=== PATIENT | male | born 1950 | race Caucasian/White ===

== ENCOUNTER 2018-07-06 10:27 | Inpatient (IN) ==
--- NOTE | 2018-06-21 11:33 | PAT Medication Instructions ---
Medication Instructions Date of Service June 21, 2018 Home Medications alfuzosin 10 mg PO QPM aspirin [Aspir-81] 81 mg PO Q2D atorvastatin 20 mg PO QPM bismuth subsalicylate 1 dose PO UD PRN finasteride 5 mg PO QPM levothyroxine 25 mcg PO QAM losartan 100 mg PO QAM metformin 1,000 mg PO BID Continue as directed aspirin [Aspir-81] 81 mg PO Q2D DO NOT take the morning of surgery bismuth subsalicylate 1 dose PO UD PRN losartan 100 mg PO QAM metformin 1,000 mg PO BID Take morning of surgery With a small sip of water, OTHERWISE NOTHING TO EAT OR DRINK AFTER MIDNIGHT: levothyroxine 25 mcg PO QAM Take evening before surgery alfuzosin 10 mg PO QPM atorvastatin 20 mg PO QPM bismuth subsalicylate 1 dose PO UD PRN (if needed) finasteride 5 mg PO QPM metformin 1,000 mg PO BID Other Notes If you have any questions please call us at [phone] or [phone] or [phone] or [phone]
--- NOTE | 2018-06-21 11:33 | Anesthesiology Consultation ---
Date of Service June 21, 2018 Assessment & Plan (1) Encounter for pre-operative examination: Plan: - Check BSG AM DOS Chart Review Chart Review: Acceptable Risk for Surgery and Patient seen in Pre Admission Testing Teaching & Discussion Pre-Anesthesia Teaching/Discussion Notes: Instructed NPO after midnight before surgery,except medications with 15 cc of water. Medication instructions provided according to the PAT guidelines. History Surgery Operation Date: 07/06/18 07:45 Proposed Procedures p L4-L5 Decompression and Fusion - Adelfo Miller DO Height/Weight Height: 5 ft 9 in Weight: 84 kg Allergies Allergy/AdvReac Type Severity Reaction Status Date / Time No Known Allergies Allergy Verified 06/15/18 09:38 Medications Home Medications Medication Instructions Recorded Confirmed Last Taken alfuzosin 10 mg PO QPM 06/15/18 06/15/18 06/14/18 aspirin [Aspir-81] 81 mg PO Q2D 06/15/18 06/15/18 Unknown atorvastatin 20 mg PO QPM 06/15/18 06/15/18 06/14/18 bismuth subsalicylate 1 dose PO UD PRN 06/15/18 06/15/18 Unknown [Pepto-Bismol] finasteride 5 mg PO QPM 06/15/18 06/15/18 06/14/18 levothyroxine 25 mcg PO QAM 06/15/18 06/15/18 06/15/18 losartan 100 mg PO QAM 06/15/18 06/15/18 06/15/18 metformin 1,000 mg PO BID 06/15/18 06/15/18 06/15/18 Past Medical History Medical History Acid reflux OCCASIONAL Diabetes NIDDM Enlarged prostate History of hepatitis 50 YEARS AGO; NO FURTHER DETAILS History of hyperlipidemia Hypertension Hypothyroidism Spinal stenosis Past Surgical History Surgical History History of carpal tunnel release of both wrists History of colonoscopy Past Anesthesia History No Hx of Anesthesia Complications and No Family Hx of Anesthesia Complications History of PONV No Motion Sickness Screening History of Motion Sickness: No Social History Smoking Status: Never smoker Do You Dip or Chew Tobacco: No Hx Alcohol Use: No Hx Substance Use: No substance use type: does not use Exercise / Class Metabolic Activity III < 4 Walking/Shop/Light housework Review of Systems Patient reports LBP with LE radiculopathy. Occasional reflux. Patient denies chest pain, shortness of breath, cough, wheezing, palpitations. Physical Exam Vital Signs VITALS BP 147/73 P 79 TEMP 98.0 SP02 94%RA RESP 16 Full neck and c-spine range of motion. Full TMJ range of motion. TMD 3 finger breaths Mallampati Score 3 Dentition: intact, upper front permanent bridge Lungs: clear throughout to auscultation Cardiac: regular rate and rhythm, no murmurs noted Spine: normal Carotid arteries: negative bruit Extremities: no edema Testing Electrocardiogram Date: 06/21/18 Findings: + NSR @ (86) Chest X-Ray Date: 06/21/18 Findings: + NAD Calcification of the thoracic aortic arch. Laboratory Results 06/21/18 11:55 06/21/18 11:55 Blood Type O Negative 06/21/18 11:55 Antibody Screen NEGATIVE 06/21/18 11:55 PT 10.0 Seconds (9.0-12.0) 06/21/18 11:55 INR 1.0 (0.9-1.1) 06/21/18 11:55 APTT 26.8 Seconds (21.0-31.0) 06/21/18 11:55 Urine Color Yellow 06/21/18 Unknown Urine Appearance Clear (Clear) 06/21/18 Unknown Urine pH 5.0 (4.5-7.5) 06/21/18 Unknown Ur Specific [place] 1.016 (1.000-1.030) 06/21/18 Unknown Urine Protein Negative (Negative) 06/21/18 Unknown Urine Glucose (UA) Negative (Negative) 06/21/18 Unknown Urine Ketones Negative (Negative) 06/21/18 Unknown Urine Nitrite Negative (Negative) 06/21/18 Unknown Ur Leukocyte Esterase Negative (Negative) 06/21/18 Unknown
--- NOTE | 2018-06-21 12:33 | XRay Report ---
XR chest Pre-admission PA/Lat HISTORY: 68 years-old Male PAT preoperative exam. No acute chest complaints reported COMPARISON: None available TECHNIQUE: PA and lateral views of the chest FINDINGS: Cardiomediastinal and hilar silhouettes are within normal limits. Calcification of the thoracic aorti c arch. There is no pneumothorax, pleural effusion, focal airspace consolidation or overt pulmonary e [place]ka. The bones of the chest appear grossly intact. IMPRESSION: No acute process. The above report was generated using voice recognition software. It may contain grammatical, syntax o r spelling errors. Electronically signed by: Juan Lorenzo M.D. 06/21/2018 12:32 PM
[2018-06-21 13:02] LABS: Basophils # (auto) 0.04 K/uL (0-0.2); Basophils % (auto) 0.4 %; Eosinophils # (auto) 0.17 K/uL (0-0.5); Eosinophils % (auto) 1.8 %; Hematocrit (blood only) 41.3 % (42-52); Hemoglobin 13.4 g/dL (14.0-18.0); Immature Granulocytes # (auto) 0.01 K/uL (0.00-0.02); Immature Granulocytes % (auto) 0.1 %; Lymphocytes % (auto) 17.6 %; Mean Corpuscular Hgb Conc 32.4 g/dL (32-36); Mean Corpuscular Volume 88.8 fL (80-100); Mean Platelet Volume 9.8 fL (7.4-10.4); Monocytes # (auto) 1.11 K/uL (0.11-0.59); Monocytes % (auto) 11.5 %; Neutrophils # (auto) 6.65 K/uL (1.4-6.5); Neutrophils % (auto) 68.6 %; Platelet Count 201 K/uL (130-400); RDW Coefficient of Variation 13.8 % (11.5-14.5); RDW Standard Deviation 44.6 fL (36.4-46.3); Red Blood Count 4.65 M/uL (4.7-6.1); White Blood Count 9.68 K/uL (4.8-10.8)
[2018-06-21 13:02] LABS: Appearance Urine Clear (Clear); Bilirubin Urine Negative (Negative); Color Urine Yellow; Glucose Urine UA Negative (Negative); Ketones Urine Negative (Negative); Leukocyte Esterase Urine Negative (Negative); Nitrite Urine Negative (Negative); Protein Urine Negative (Negative); Specific Gravity Urine 1.016 (1.000-1.030); Urobilinogen Urine Negative (Negative)
[2018-06-21 13:11] LABS: BUN Creatinine Ratio 19.2 (10-20); Calcium 9.5 mg/dl (8.5-10.1); Creatinine Clr Calc Pharmacy 49.8 ml/min; Est GFR (African American) 59.6; Est GFR (Non-African American) 51.4; Potassium 5.1 mmol/L (3.5-5.1)
[2018-06-21 13:19] LABS: Partial Thromboplastin Time 26.8 Seconds (21.0-31.0)
[~2018-07-06 10:27] MED LIST: ACETAMINOPHEN 500 MG TAB PO SCH; CEFAZOLIN 2000MG 2,000 MG/15 ML SYR IV SCH; CeleBREX 200 MG CAP PO SCH; GABAPENTIN 300 MG PO SCH; LACTATED RINGER'S 1,000 ML IV SCH
[2018-07-06] MEDS ORDERED: MIDAZOLAM HCL 1 MG/ML 2ML VIAL ONE (10:30)
[2018-07-06] MEDS ORDERED: fentaNYL citrate 100 MCG/2 ML VIAL ONE ×4 (10:30→13:24)
[2018-07-06] MEDS ORDERED: HYDROmorphone INJ 2 MG/ML SYR/VIAL ONE ×2 (10:30→11:54)
[2018-07-06] MEDS ORDERED: ePHEDrine sulfate 50 MG/ML AMP IV PRN (10:51)
[2018-07-06] MEDS ORDERED: PHENYLEPHRINE 100MCG/ML 5ML SYR IV PRN (10:51)
[2018-07-06] MEDS ORDERED: fentaNYL citrate 100 MCG/2 ML VIAL IV PRN (10:51)
[2018-07-06] MEDS ORDERED: ONDANSETRON INJ 2 MG/ML 2 ML VIAL IV PRN ×2 (10:51→14:57)
[2018-07-06] MEDS ORDERED: ATROPINE SULFATE 0.1 MG/ML 10ML SYR IV PRN (10:51)
[2018-07-06] MEDS ORDERED: HYDROmorphone INJ 1 MG/ML SYRINGE IV PRN (10:51)
--- NOTE | 2018-07-06 11:40 | History & Physical Bridge Note ---
Date of Service July 06, 2018 History & Physical Bridge Note I have examined the patient, reviewed the History & Physical and in the interval since the performance of the History & Physical I have noted the following changes of clinical significance: no changes noted
--- NOTE | 2018-07-06 11:41 | History & Physical Report ---
Date of Service July 06, 2018 Assessment & Plan (1) Neurogenic claudication due to lumbar spinal stenosis: L4-5 decompression fusion Present on Admission?: Yes History of Present Illness Chief Complaint: Back and leg pain Primary Care Provider: Melony Rahman DO This is a 68-year-old male who presents with back and leg pain. After failing extensive course of nonoperative care is here for surgical intervention. Allergies Allergy/AdvReac Type Severity Reaction Status Date / Time No Known Allergies Allergy Verified 07/06/18 10:52 Home Medications Home Medications Medication Instructions Recorded Confirmed Type alfuzosin 10 mg PO QPM 06/15/18 07/06/18 History aspirin [Aspir-81] 81 mg PO Q2D 06/15/18 07/06/18 History atorvastatin 20 mg PO QPM 06/15/18 07/06/18 History bismuth subsalicylate 1 dose PO UD PRN 06/15/18 07/06/18 History [Pepto-Bismol] finasteride 5 mg PO QPM 06/15/18 07/06/18 History levothyroxine 25 mcg PO QAM 06/15/18 07/06/18 History losartan 100 mg PO QAM 06/15/18 07/06/18 History metformin 1,000 mg PO BID 06/15/18 07/06/18 History cholecalciferol (vitamin D3) 1,000 unit PO DAILY 07/06/18 07/06/18 History [Vitamin D3] Past Med/Surg History Medical History Acid reflux OCCASIONAL Diabetes NIDDM Enlarged prostate History of hepatitis 50 YEARS AGO; NO FURTHER DETAILS History of hyperlipidemia Hypertension Hypothyroidism Spinal stenosis Surgical History History of carpal tunnel release of both wrists History of colonoscopy Social History Current Living Situation: Spouse Other Information That Helps Us Care for You: No Feels Safe at Home: Yes Smoking Status: Never smoker Do You Dip or Chew Tobacco: No Hx Alcohol Use: No Hx Substance Use: No Beliefs That Will Affect Care: None Preferred Language: [place] Communication Ability: Effective [employer] D[employer] Required: No Physical Exam 2 Vital Signs (Past 24 Hours): Last Vital Signs Temp 36.7 C 07/06/18 11:00 Pulse 98 H 07/06/18 11:00 Resp 18 07/06/18 11:00 BP 173/84 H 07/06/18 11:00 Pulse Ox 96 07/06/18 11:00 Results & Data Medications Administered Acetaminophen (Tylenol) 1,000 mg PO PREOP JOSE FRANCISCO Stop: 07/06/18 18:00 Last Admin: 07/06/18 11:03 Dose: 1,000 mg Celecoxib (Celebrex) 200 mg PO PREOP JOSE FRANCISCO Stop: 07/06/18 18:00 Last Admin: 07/06/18 11:02 Dose: 200 mg Gabapentin (Neurontin) 300 mg PO PREOP JOSE FRANCISCO Stop: 07/06/18 18:00 Last Admin: 07/06/18 11:03 Dose: 300 mg Lactated Ringer's (Lr) 1,000 mls @ 15 mls/hr IV .Q24H JOSE FRANCISCO Stop: 07/06/18 18:00 Last Admin: 07/06/18 11:02 Dose: 15 mls/hr
[2018-07-06] MEDS ORDERED: BUPIVACAINE/EPINEPHRINE 0.5% MPF 1:200,000 30 ML VIAL ONE (11:56)
[2018-07-06] MEDS ORDERED: BACITRACIN INJ 50,000 UNIT VIAL ONE (11:56)
[2018-07-06] MEDS ORDERED: ESMOLOL HCL INJ 10 MG/ML 10ML VIAL IV ONE (12:40)
[2018-07-06] MEDS ORDERED: LIDOCAINE HCL 2% 2 ML VIAL/AMP(20MG/ML) INFIL ONE (12:40)
[2018-07-06] MEDS ORDERED: DEXAMETHASONE SOD INJ 4 MG/ML VIAL ONE (12:40)
[2018-07-06] MEDS ORDERED: ePHEDrine sulfate 50 MG/ML SYR ONE (12:40)
[2018-07-06] MEDS ORDERED: ONDANSETRON INJ 2 MG/ML 2 ML VIAL ONE (12:40)
[2018-07-06] MEDS ORDERED: PROPOFOL IV EMULSION 10 MG/ML 20 ML VIAL IV ONE (12:40)
[2018-07-06] MEDS ORDERED: NEOSTIGMINE METHYLSULFATE 1 MG/ML 10ML VIAL ONE (12:40)
[2018-07-06] MEDS ORDERED: PHENYLEPHRINE 100MCG/ML 5ML SYR ONE (12:40)
[2018-07-06] MEDS ORDERED: GLYCOPYRROLATE 0.2 MG/ML VIAL ONE (12:40)
[2018-07-06] MEDS ORDERED: LARYING-O-JET KIT (LTA) ONE (12:46)
[2018-07-06] MEDS ORDERED: FLOSEAL HEMOSTATIC MATRIX 10ML TOP ONE (13:32)
--- NOTE | 2018-07-06 13:40 | Operative Report ---
Post Operative Report Pre & Post Diagnosis Operation Date: 07/06/18 12:25 Pre-Op Diagnosis: Neurogenic claudication due to lumbar spinal stenosis Post-Op Diagnosis: Neurogenic claudication due to lumbar spinal stenosis Procedure Operative report. #1 lumbar decompression medial facetectomy foraminotomy L3-4 L4-5 #2 posterior spinal fusion L4-5 per #3 please posterior instrumentation L4-5 per #4 interbody fusion L4-5 per #[address] place of titanium 12 x 26 mm cage L4-5. #6 placement of local autograft and posterior gutters. #7 placement Feese), mass graft posterior gutters and ostial amp and interbody space. Surgeon Adelfo Miller, Primary Care Provider Eboni Holly Estimated Blood Loss 225 Findings Consistent with Post-Op Diagnosis Specimens None Description of Procedure Met with preoperatively case discussed all questions addressed. The patient was taken back to the operative suite underwent intubation placed in a prone position Juvenal table top Anderson frame. All bony prominences well-padded eyes inspected to ensure no external pressure placed upon. This point lumbar spine was prepped and draped in a sterile fashion. Sharp dissection with the assistance of Bovie cautery was performed down to and exposing the lamina and transverse process of L4-5 bilaterally. Obvious facet hypertrophy was noted. Complete laminectomy of L4 partial laminectomy of L3 was performed including medial facetectomies foraminotomies addressing severe lateral recess and foraminal disease. Massive facet cyst on the left was identified and removed. Pedicle screws and placed in L4-5 bilaterally with assistance of fluoroscopy and process radha placed. The transfemoral approach on the left complete discectomy was performed in plate coated to subcortical bleeding bone and a 12 x 26 mm titanium cage filled ostium bone graft tapped in position. Rods were then compressed locked in final position bilaterally. The transverse processes of L4 and fiber 2 subcortical B bone. Infuse collagen sponge mass graft local autograft placed in the posterior gutters. A 10 round REZA drain inserted. Incision was then closed with 1 Vicryl fascia 2-0 Vicryl subtenons in 4 Monocryl for final skin closure Steri-Strip sterile dressing placed. Patient will continue to PACU stable disc. Please note Eboni Holly present throughout the entire procedure total patient positioning complex portions of the surgeon Fransen closure. I attest to the content of the Intraoperative Record and any orders documented therein. Any exceptions are noted below.
--- NOTE | 2018-07-06 13:45 | Fluoroscopy Report ---
FL lumbar spine 2-3V CLINICAL HISTORY: L4-L5 DECOMPRESSION AND FUSION COMPARISON STUDY: Lumbar spine MRI May 02, 2018. FLUOROSCOPY TIME: 11.6 seconds. FLUOROSCOPIC IMAGES: 2 FINDINGS: These images demonstrate an L4-L5 discectomy with interbody spacer placement. Note is made of a posterior decompression with bilateral pedicle screw fusion at L4 and L5. Hardware is intact. Th ere are no unexpected radiopaque foreign bodies. IMPRESSION: Expected findings following L4-L5 discectomy with posterior decompression and bilateral pedicle screw fusion. Electronically signed by: Foster Hong M.D. 07/06/2018 1:44 PM
[2018-07-06] MEDS ORDERED: BISACODYL 10 MG SUPP PR PRN (14:57)
[2018-07-06] MEDS ORDERED: DO NOT ADMINISTER PNEUMOCOCCAL VACCINE PRN (14:57)
[2018-07-06] MEDS ORDERED: LORazepam 0.5 MG TAB PO PRN (14:57)
[2018-07-06] MEDS ORDERED: ACETAMINOPHEN 500 MG TAB PO PRN (14:57)
[2018-07-06] MEDS ORDERED: PROMETHAZINE HCL 12.5 MG in SODIUM CHLORIDE 0.9% 50 ML IV PRN (14:57)
[2018-07-06] MEDS ORDERED: FAMOTIDINE 20 MG TAB PO PRN (14:57)
[2018-07-06] MEDS ORDERED: ACETAMINOPHEN 1,000 MG/100 ML VIAL IV PRN (14:57)
[2018-07-06] MEDS ORDERED: DO NOT ADMINISTER FLU VACCINE PRN (14:57)
[2018-07-06] MEDS ORDERED: TRAMADOL HCL 50 MG TABLET PO PRN (14:57)
[2018-07-06] MEDS ORDERED: MAGNESIUM HYDROXIDE SUSP 30 ML UDC PO PRN (14:57)
[2018-07-06] MEDS ORDERED: SOD PHOSPHATE/SOD BIPHOSPHATE ENEMA 132 ML BTL PR PRN (14:57)
[2018-07-06] MEDS ORDERED: ONDANSETRON 4 MG TAB PO PRN (14:57)
[2018-07-06] MEDS ORDERED: ALUMINUM/MAGNESIUM SUSP 30 ML UDC PO PRN (14:57)
[2018-07-06] MEDS ORDERED: LORazepam 0.5 MG/1 ML VIAL IV PRN (14:57)
[2018-07-06] MEDS ORDERED: METOCLOPRAMIDE HCL INJ 5 MG/ML 2 ML VIAL IV PRN (14:57)
[2018-07-06] MEDS ORDERED: HYDROmorphone INJ 0.5 MG/0.5 ML SYR IV PRN (14:57)
--- NOTE | 2018-07-06 15:05 | Anesthesiology Progress Note ---
Date of Service July 06, 2018 Anesthesia Post Procedure Vital Signs Vital Signs: Temp Pulse Pulse Resp BP BP Pulse Ox 07/06/18 14:45 68 17 128/61 95 07/06/18 14:30 71 17 137/63 93 07/06/18 14:20 36.4 C L 79 19 140/66 94 07/06/18 14:10 79 15 139/61 98 07/06/18 14:00 90 12 159/83 H 97 07/06/18 13:53 36.3 C L 91 H 21 144/69 H 97 07/06/18 11:00 36.7 C 98 H 18 173/84 H 96 Pain Intensity Back: Pain Intensity: 0 Notes Mental Status: alert / awake / arousable Patient Amnestic to Procedure: Yes Nausea / Vomiting: adequately controlled Pain: adequately controlled Airway Patency, RR, SpO2: stable & adequate BP & HR: stable & adequate Hydration State: stable & adequate Anesthetic Complications: no major complications apparent
[2018-07-06] MEDS: KETOROLAC TROMETHAMINE 15 MG/ML VIAL IV SCH ×2 (15:54→20:56)
[2018-07-06] MEDS ORDERED: GLUCAGON FOR INJ 1 MG VIAL SQ PRN (17:08)
[2018-07-06] MEDS ORDERED: CARBOHYDRATES FOR HYPOGLYCEMIA PO PRN (17:08)
[2018-07-06] MEDS ORDERED: GLUCOSE 40% GEL 15 GM TUBE PO PRN (17:08)
[2018-07-06] MEDS ORDERED: DEXTROSE 50% 50 ML SYRINGE IV PRN (17:08)
[2018-07-06] MEDS ORDERED: GLUCOSE 10 TABS/TUBE PO PRN (17:08)
--- NOTE | 2018-07-06 17:19 | Consultation ---
Date of Consultation July 06, 2018 Assessment & Plan (1) Neurogenic claudication due to lumbar spinal stenosis: POD #0 S/P Lumbar Decompression/Fusion L3-4, L4-[address] Miller EBL 225ml -pain/wound management per ortho -activity as directed by ortho -incentive spirometry -monitor H/H for abl anemia (2) Hypertension: -blood pressure stable on losartan -monitor (3) Diabetes: -A1C 6.3 03/2018 -hold metformin -lantus/novolog per protocol (4) CKD (chronic kidney disease) stage 3, GFR 30-59 ml/min: -lab from 06/21 Bun 27/Cr 1.38 -unknown baseline -repeat bmp in a.m. (5) HLD (hyperlipidemia): -continue statin (6) Anemia: -H/H stable at 13.4/41.3 -monitor for acute blood loss -cbc in a.m. -normocytic/normochromic (7) Enlarged prostate: -continue alfuzosin -monitor for post op urinary retention (8) Hypothyroidism: -continue levothyroxine (9) DVT prophylaxis: -per ortho SCDS/ASA Disposition: per primary team Follow up: with PCP Dr. Rahman upon discharge Patient was seen in collaboration with Dr. Cartagena, please see addendum Starting 07/07/18 patient will be followed by Dr. Merlos Thank you for this consultation. We will follow the patient with you during their hospital stay. You can reach a member of the [facility] 21/12 via pager @ . Supervising Physician Co-Signing Physician Notes Patient is a 68-year-old male with history of lumbar spinal stenosis and neurogenic claudication who underwent elective lumbar decompression fusion by Dr. Miller was seen and examined postop. Patient complains of pain at surgical site. He denies any history of numbness and tingling, chest pain or dyspnea. Patient was consulted for management of hypertension, diabetes, CKD, hyperlipidemia, BPH and hypothyroidism. On exam patient is moderately built, in no distress, lungs are clear to auscultation,RRR, back--surgical site in dressing, grossly no focal deficits, no pedal edema. Blood pressure is mildly elevated likely secondary to pain. Continue losartan, Monitor renal function. Monitor for postop anemia. DVT prophylaxis, activity and pain control as per primary team. Monitor for blood sugar levels, continue insulin therapy. Continue bowel regimen to prevent constipation. I personally reviewed the record. Patient is interviewed and examined at bedside. Patient's care is coordinated with Janie Vang PA-C. Please refer to the documentation above for details of patient's presentation and for discussion of other issues. History of Present Illness Reason for Consultation: Post op medical management Requesting Physician: Dr. Miller Attending Physician: Adelfo Miller DO History of Present Illness This is a 68 year old male with significant PMH of T2DM, HTN, HLD, Gerd, BPH, hypothyroidism who presents to [facility] for elective Lumbar Decompression/Fusion by Dr. Miller. Patient has failed outpatient conservative measures for lumbar spinal stenosis with neurogenic claudication. and daughter are at bedside. Prior to procedure patient was experiencing radiating pain, numbness and tingling down legs with frequent, "jolting of pain that would almost make him fall, but as able to catch self." Patient currently very drowsy. Recent nausea and emesis x 1 and received phenergan. Has since subsided. Complains of incisional back discomfort and pain in back of left leg. Currently patient denies f/c/s, dizziness, lightheaded, chest pain, sob, poole, palpitations, diarrhea, abdominal pain. Patient has not urinated since surgery. Allergies Allergy/AdvReac Type Severity Reaction Status Date / Time No Known Allergies Allergy Verified 07/06/18 10:52 Home Medications Home Medications Medication Instructions Recorded Confirmed Type alfuzosin 10 mg PO QPM 06/15/18 07/06/18 History aspirin [Aspir-81] 81 mg PO Q2D 06/15/18 07/06/18 History atorvastatin 20 mg PO QPM 06/15/18 07/06/18 History bismuth subsalicylate 1 dose PO UD PRN 06/15/18 07/06/18 History [Pepto-Bismol] finasteride 5 mg PO QPM 06/15/18 07/06/18 History levothyroxine 25 mcg PO QAM 06/15/18 07/06/18 History losartan 100 mg PO QAM 06/15/18 07/06/18 History metformin 1,000 mg PO BID 06/15/18 07/06/18 History cholecalciferol (vitamin D3) 1,000 unit PO DAILY 07/06/18 07/06/18 History [Vitamin D3] Patient History Surgical History History of carpal tunnel release of both wrists History of colonoscopy Family History Father CVA (cerebral vascular accident) Mother Dementia Social History Current Living Situation: Spouse Other Information That Helps Us Care for You: No Feels Safe at Home: Yes Smoking Status: Never smoker Do You Dip or Chew Tobacco: No Hx Alcohol Use: No Hx Substance Use: No Beliefs That Will Affect Care: None Preferred Language: Qatari Communication Ability: Effective Pipe Stem Aligner Required: No Review of Systems As noted per HPI, 10 systems reviewed and negative unless noted above. Physical Exam 2 Vital Signs (Past 24 Hours): Last Vital Signs Temp 36.3 C L 07/06/18 16:00 Pulse 90 07/06/18 17:05 Resp 14 07/06/18 17:05 BP 116/70 07/06/18 17:05 Pulse Ox 94 07/06/18 17:05 Physical Exam: Gen: WD/WN, M, NAD, drowsy but arousable to verbal stimulation , sitting up in bed, pleasant, Head: Normocephalic, Atraumatic Eyes: Sclera normal, no conjunctival injection, PERRLA, EOMI ENT: Gross hearing intact, normal pharynx, mucous membranes dry Neck: supple, no adenopathy, No JVD, no bruit, Resp: Clear to auscultation b/l, no wheeze, rales, rhonchi. Normal insp/exp effort, no accessory muscle use CV: Regular rate, regular rhythm, 1/6 soft PATRICIA noted cardiac base, no rub, gallop, or ectopy Abd: +BS x 4, soft, nontender, nondistended Musculoskeletal: + lumbar incision dressing CDI, moves extremities active rom x 4, strength intact, good audiovisual tech strength Extremities: No edema bilaterally, SCDS intact Skin: warm, moist, no rash, negative turgor, cap refill < 2sec Neuro: Alert and oriented x 3, speech normal, good mood/affect, cran nerve 2-12 intact grossly : deferred Results & Data Laboratory Results Pre operative lab work H/H 13.4/41.3 Bun 27, Cr 1.38 Diagnostic Findings Lumbar Spine Xray: IMPRESSION: Expected findings following L4-L5 discectomy with posterior decompression and bilateral pedicle screw fusion. CXR: IMPRESSION: No acute process. _ (1) Diabetes Diabetes mellitus complication status: without complication Diabetes mellitus chcf insulin use: without chcf use Diabetes mellitus type: type 2 Qualified Code(s): E11.9 - Type 2 diabetes mellitus without complications (2) Anemia Anemia type: unspecified type Qualified Code(s): D64.9 - Anemia, unspecified (3) HLD (hyperlipidemia) Hyperlipidemia type: unspecified Qualified Code(s): E78.5 - Hyperlipidemia, unspecified (4) Hypothyroidism Hypothyroidism type: unspecified Qualified Code(s): E03.9 - Hypothyroidism, unspecified (5) Hypertension Hypertension type: essential hypertension Qualified Code(s): I10 - Essential (primary) hypertension
[2018-07-06] MEDS: OXYCODONE HCL IR 5 MG TAB (IMMEDIATE RELEASE) PO PRN ×2 (18:09→23:58)
[2018-07-06] MEDS: INSULIN ASPART 100 UNITS/ML 3 ML PEN SC SCH ×2 (18:26→20:59)
[2018-07-06] MEDS: SODIUM CHLORIDE 0.9% 1000ML 1,000 ML IV SCH (20:15)
[2018-07-06] MEDS: CEFAZOLIN 2000MG 2,000 MG/15 ML SYR IV SCH (20:15)
[2018-07-06] MEDS: INSULIN GLARGINE SOLOSTAR 100 UNITS/ML 3 ML PEN SC SCH (20:59)
[2018-07-06] MEDS ORDERED: ATORVASTATIN 20 MG TAB PO SCH (21:00)
[2018-07-06] MEDS ORDERED: FINASTERIDE 5 MG TAB PO SCH (21:00)
[2018-07-06] MEDS ORDERED: ALFUZOSIN HCL 10 MG TAB PO SCH (21:00)
[2018-07-06] MEDS ORDERED: DOCUSATE SODIUM/SENNA 50/8.6MG TAB PO SCH (21:00)
[2018-07-07] MEDS: SODIUM CHLORIDE 0.9% 1000ML 1,000 ML IV SCH (03:21)
[2018-07-07] MEDS: CEFAZOLIN 2000MG 2,000 MG/15 ML SYR IV SCH (04:07)
[2018-07-07] MEDS: KETOROLAC TROMETHAMINE 15 MG/ML VIAL IV SCH ×2 (04:07→10:08)
[2018-07-07] MEDS: POLYETHYLENE (MIRALAX) 17 GM PACK PO SCH ×2 (05:56→13:18)
[2018-07-07 06:18] LABS: Hematocrit (blood only) 31.5 % (42-52); Hemoglobin 10.4 g/dL (14.0-18.0); Mean Platelet Volume 9.2 fL (7.4-10.4); Platelet Count 169 K/uL (130-400); RDW Coefficient of Variation 13.7 % (11.5-14.5); RDW Standard Deviation 43.9 fL (36.4-46.3); Red Blood Count 3.62 M/uL (4.7-6.1); White Blood Count 14.51 K/uL (4.8-10.8)
[2018-07-07] MEDS ORDERED: LEVOTHYROXINE SODIUM 25 MCG TABLET PO SCH (06:30)
[2018-07-07 06:43] LABS: BUN Creatinine Ratio 18.7 (10-20); Creatinine Clr Calc Pharmacy 39.1 ml/min; Est GFR (African American) 44.4; Est GFR (Non-African American) 38.3; Potassium 4.3 mmol/L (3.5-5.1)
[2018-07-07] MEDS ORDERED: SODIUM CHLORIDE 0.9% 500 ML IV SCH (08:45)
--- NOTE | 2018-07-07 08:49 | Hospitalist Progress Note ---
Date of Service July 07, 2018 Assessment & Plan (1) Neurogenic claudication due to lumbar spinal stenosis: POD #1 S/P Lumbar Decompression/Fusion L3-4, L4-[address] Angela ALLISON 225ml tolerated procedure well -pain/wound management per ortho -activity as directed by ortho -incentive spirometry -monitor H/H for abl anemia (2) Hypertension: -blood pressure stable on losartan -monitor (3) Diabetes: -A1C 6.3 03/2018 -hold metformin -lantus/novolog per protocol -due to slight rise in Cr would recommend holding metformin until 07/09/18 (4) CKD (chronic kidney disease) stage 3, GFR 30-59 ml/min: -lab from 06/21 Bun 27/Cr 1.38 -unknown baseline -Cr today 1.76 -will give 500ml IVF x 1 as patient is being discharged today -recommend repeat bmp in 1 week (5) HLD (hyperlipidemia): -continue statin (6) Anemia: -H/H stable at 10.4/31.5 -would recommend repeat cbc in 1 week to monitor for further ABL -normocytic/normochromic (7) Enlarged prostate: -continue alfuzosin -monitor for post op urinary retention (8) Hypothyroidism: -continue levothyroxine (9) DVT prophylaxis: -per ortho SCDS/ASA Disposition: per primary team Follow up: with PCP Dr. Rahman upon discharge in 1 week along with repeat bmp, cbc in 1 week Patient was seen in collaboration with Dr. Merlos, please see addendum Thank you for this consultation. We will follow the patient with you during their hospital stay. You can reach a [facility] the [facility]/12 via pager @ . Supervising Physician Co-Signing Physician Notes ATTENDING ADDENDUM : pt recovering from post op spinal surgery management as per Ortho GWEN , Cr mildly elevated post op given IVF Hospital follow up with family physician in week with out patient BMP check script for lab work given to patient Renata Merlos MD Subjective Patient was seen and examined in bed 318-1. S/P Lumbar Decompression/Fusion L3-4, L4-5. Offers no complaints. Currently no complaints of pain. Denies f/c/s, chest pain, sob, n/v/d, abdominal pain. Had episode of emesis yesterday post op and has since resolved. Up eating breakfast. Ambulating with walker. Physical Exam 2 Vital Signs (Past 24 Hours): Last Vital Signs Temp 36.4 C L 07/07/18 07:20 Pulse 81 07/07/18 07:20 Resp 16 07/07/18 07:20 BP 124/70 07/07/18 07:20 Pulse Ox 91 07/07/18 07:20 Physical Exam: Gen: WD/WN, M, NAD, A&O x3, sitting up at bedside eating breakfast HEENT: Normocephalic, atraumatic, conjunctivae moist, sclerae anicteric, mucous membranes moist. Lung: Clear to Auscultation bilaterally, no wheezes/rales/rhonchi Heart: Regular rate, regular rhythm, soft 1/6 PATRICIA cardiac base, no rubs, or gallops Abdomen: Soft, NT, ND +BS x 4 Extremities: No edema Skin: Warm, no rash, negative turgor. Lumbar dressing CDI Results & Data Laboratory Results Short CBC 06/21/18 07/06/18 07/06/18 Range/Units 11:55 10:53 14:10 WBC (4.8-10.8) K/uL Hgb (14.0-18.0) g/dL Hct (42-52) % Plt Count (130-400) K/uL BUN 27 H (7-18) mg/dl Creatinine 1.38 (0.6-1.4) mg/dl POC Glucose 128 H 164 H (70-99) 07/06/18 07/06/18 07/07/18 Range/Units 17:08 20:25 05:38 WBC 14.51 H (4.8-10.8) K/uL Hgb 10.4 L (14.0-18.0) g/dL Hct 31.5 L (42-52) % Plt Count 169 (130-400) K/uL BUN (7-18) mg/dl Creatinine (0.6-1.4) mg/dl POC Glucose 219 H 254 H (70-99) 07/07/18 07/07/18 Range/Units 05:38 08:04 WBC (4.8-10.8) K/uL Hgb (14.0-18.0) g/dL Hct (42-52) % Plt Count (130-400) K/uL BUN 33 H (7-18) mg/dl Creatinine 1.76 H (0.6-1.4) mg/dl POC Glucose 197 H (70-99) [facility] 07/07/18 05:38 Sodium 135 L Potassium 4.3 Chloride 105 Carbon Dioxide 22 BUN 33 H Creatinine 1.76 H Glucose 140 H Calcium 8.0 L _ (1) Diabetes Chronic kidney disease stage: Diabetes mellitus complication detail: Diabetes mellitus complication status: without complication Diabetes mellitus meterman insulin use: without meterman use Diabetes mellitus macular edema: Diabetes mellitus type: type 2 Diabetic retinopathy severity: Laterality: Proliferative retinopathy type: Qualified Code(s): E11.9 - Type 2 diabetes mellitus without complications (2) Anemia Anemia type: unspecified type Bone marrow failure anemia type: Chronic kidney disease stage: Folate deficiency anemia type: Hemolytic anemia type: Iron deficiency anemia type: Other causes of anemia: Vitamin B12 deficiency anemia type: Qualified Code(s): D64.9 - Anemia, unspecified (3) HLD (hyperlipidemia) Hyperlipidemia type: unspecified Qualified Code(s): E78.5 - Hyperlipidemia, unspecified (4) Hypothyroidism Hypothyroidism type: unspecified Qualified Code(s): E03.9 - Hypothyroidism, unspecified (5) Hypertension Hypertension type: essential hypertension Qualified Code(s): I10 - Essential (primary) hypertension
[2018-07-07] MEDS: INSULIN GLARGINE SOLOSTAR 100 UNITS/ML 3 ML PEN SC SCH (08:51)
[2018-07-07] MEDS: INSULIN ASPART 100 UNITS/ML 3 ML PEN SC SCH ×2 (08:52→13:17)
--- NOTE | 2018-07-07 08:53 | Discharge Summary ---
Date of Service July 07, 2018 Admission HPI Per Admitting Provider This is a 68-year-old male who presents with back and leg pain. After failing extensive course of nonoperative care is here for surgical intervention. Principal Diagnosis Lumbar spinal stenosis with neurogenic claudication Discharge Data Allergies Allergy/AdvReac Type Severity Reaction Status Date / Time No Known Allergies Allergy Verified 07/06/18 10:52 Consultations 07/06/18 14:57 Consult Case Management - Discharge Planning Routine Consult Hospitalist Routine Procedures Performed Operation Date: 07/06/18 12:25 Actual Procedures p Decompression and Fusion L4-L5 (Not Applicable) - Adelfo Miller DO Ordered Studies 07/06/18 12:25 FL fluoroscopy <1hr Routine FL lumbar spine 2-3V Routine Hospital Course (1) Neurogenic claudication due to lumbar spinal stenosis: Patient underwent lumbar decompression fusion tolerated as well as taken the orthopedic floor postoperative. Postoperatively he was up and ambulating nicely. Leg symptoms markedly improved. Back pain control. REZA drain decreasing appropriately. Subsequently discharged home. Discharge orders and instructions from the chart for further review. Total Time Total Time Spent Total Time Spent (In Minutes): Not applicable Discharge Plan Discharge Items Patient Disposition: Home - Self-Care Reason For Visit: LUMBAR SPINAL STENOSIS W/OUT NEUROGENIC CLAUDICATI Discharge Diagnosis: lumbar stenosis Discharge Goals: Improve function Activity: Per 'Additional Instructions' section Non-emergency contact: Primary Care Provider Call non-emergency contact if: you have any medication questions Follow-up/Referrals: Melony Rahman DO [Primary Care Provider] - Diet: Regular Other Ambulatory Orders: Basic Metabolic Panel (Routine) Timeframe: 1 Week Location: Determined by Patient Ordered By: Janie Vang Complete Blood Count no Diff (Routine) Timeframe: 1 Week Location: Determined by Patient Ordered By: Janie Vang Addtl Provider Instructions: Internal Medicine Recommendations: Follow up with family physician in 1 week Recommend CBC and BMP at follow up visit to monitor kidney function and blood counts Avoid NSAIDS- no advil, ibuprofen, aleve HOLD Metformin until 07/09/18 ACTIVITY RECOMMENDATIONS: SELF CARE INSTRUCTIONS AFTER THORACIC/LUMBAR FUSIONS 1. You may walk to your tolerance. It is good exercise for your legs and back. Expect some back and intermittent leg aches and pains. 2. You may perform "counter-top" level activities (make a sandwich, khris with a project, etc.). 3. No bending or lifting of more than 10 pounds or back twisting of any nature (roll like a log when turning in bed). 4. You may ride in a car for 20-30 minutes at a time. No driving until after your first visit with your doctor. 5. Frequent changes of position and restricting sitting to 30 minutes at a time will help limit the amount of back spasms and stiffness you may experience. 6. You may discontinue the use of ambulatory aids (cane, crutches, etc.) once your strength and confidence allow. 7. You may lead software test engineer the shower and let water strike your incision when you arrive home at least once daily. Do not take a tub bath, sit in a hot tub or go into a swimming pool until after your first recheck in the office. SPECIAL CARE INSTRUCTIONS: VERY IMPORTANT TO READ AND REVIEW A. Your surgical incision has been closed with a cosmetic suture under the skin that will dissolve in about 6 weeks. In 14 days, you can use a pair of clean scissors and cut the suture that is left outside of the skin at the ends of your incision. 1. The small skin tapes can be removed 7 days after surgery if they have not fallen off by that point. 2. You may keep the wound open to air as much as possible to promote healing after post-op day number 5 unless told otherwise by your doctor. 3. If you think the wound looks like it is becoming infected (redness or worsening drainage) and/or you are experiencing fever, chill or worsening back pain and muscle spasms, contact the office so that we may evaluate you as soon as possible. B. Complications are uncommon, but please contact us if you have any signs or symptoms of: 1. wound infection (fever higher than 102.5 degrees F, redness, separation of wound, drainage, or increasing pain from the incision) 2. blood clots in legs (pain, swelling, redness and warmth in legs) 3. urinary tract infection (fever higher than 102.5 degrees F, burning upon urination or increased frequency of urination) 4. nerve problems (inability to walk on your toes or heels, numbness, loss of bowel or bladder control) 5. any other symptoms that concern you C. Please call the office at if you have any concerns or questions about your operation or recovery. D. No smoking! Smoking drastically decreases the chance of a solid fusion. E. Do not take any anti-inflammatory medications (Indocin, Advil, Motrin, Aspirin, Naprosyn, etc.) as these may inhibit the chance of a solid fusion. Tylenol is okay to take for pain. MANAGING PAIN AFTER SPINAL SURGERY 1. Narcotic medication is intended for short-term use and will be provided for surgical pain. Surgical pain usually lasts for a period of 4-6 weeks. Narcotic medication includes Percocet, Vicodin, Darvocet, Tylenol #3 or Lortab. 2. Longer-term pain is more appropriately treated with non-narcotic medication such as Tylenol ES. 3. Muscle spasm is not appropriately treated with narcotics. Muscle relaxers such as Soma, Flexeril or Skelaxin can be used along with Tylenol ES. 4. Remember that we all live with some "aches and pains". This is not unusual or uncommon after an injury or as we get older. a. Back pain is expected and may include muscle spasms for 4 to 6 weeks after surgery. The pain should gradually improve. If the pain worsens for no apparent reason, please contact the office. b. Intermittent leg pain may also be experienced and should not be concerned about unless it worsens for no apparent reason. If so, please contact the office. 5. We will provide appropriate medication within the normal guidelines of their prescribed use. We will also be very cautious and aware of potential abuse and extended duration of patients' medication needs. a. Pain medications are for your comfort and to assist with sleep and rest so that the tissue can heal. They are not provided in order to return to normal activity and should not be used through the day. To do so or worsening pain at night can result from ongoing tissue damage and development of tolerance to the prescribed medicine. 6. Please allow 2-3 days to process refills. Prescriptions will not be mailed but must be picked up at the office. FOLLOW UP VISIT: Keep your scheduled follow-up appointment. Any questions, please call the office at . Prescriptions: New tramadol 50 mg Tablet 50 mg PO Q4H PRN (Reason: Pain, Moderate) Qty: 30 RF: 0 oxycodone 5 mg Tablet 5 mg PO Q4H PRN (Reason: Pain, Severe) Qty: 30 RF: 0 Continue atorvastatin 20 mg Tablet 20 mg PO QPM RF: 0 aspirin [Aspir-81] 81 mg Tablet,Delayed Release (Dr/Ec) 81 mg PO Q2D RF: 0 levothyroxine 25 mcg Tablet 25 mcg PO QAM RF: 0 metformin 1,000 mg Tablet 1,000 mg PO BID RF: 0 losartan 100 mg Tablet 100 mg PO QAM RF: 0 finasteride 5 mg Tablet 5 mg PO QPM RF: 0 alfuzosin 10 mg Tablet Extended Release 24 Hr 10 mg PO QPM RF: 0 bismuth subsalicylate [Pepto-Bismol] 262 mg Tablet 1 dose PO UD PRN (Reason: Acid Reflux) RF: 0 cholecalciferol (vitamin D3) [Vitamin D3] 1,000 unit Capsule 1,000 unit PO DAILY RF: 0 Stand-Alone Forms: [facility] Discharge Orders: Discharge Order (Routine); Ordered 07/07/18 Ordered By: Adelfo Miller Admission Data Admit Date/Time: 07/06/18 13:43 Attending Provider: Adelfo Miller Admit Provider: Adelfo Miller Primary Care Provider: Melony Rahman Other Providers: Jonathan Avitia Ayesha H Service: Surgical Services
[2018-07-07] MEDS ORDERED: LOSARTAN POTASSIUM 50 MG TAB PO SCH (09:00)
[2018-07-07] MEDS ORDERED: ASPIRIN 81 MG ECTAB PO SCH (09:00)
[2018-07-07] MEDS ORDERED: CHOLECALCIFEROL 1,000 UNITS TAB PO SCH (09:00)
--- NOTE | 2018-07-11 11:35 | Coding Query ---
CODING QUERY To promote full compliance with coding requirements relating to patient care, provider participation is requested in all cases of senior construction manager uncertainty. Please assist us with the question(s) below: Please clarify the meaning of GWEN that is documented on your 07/07/18 Progress Note. GWEN is not a valid abbreviation. Thank you. ( X ) Acute Kidney Injury ( ) Acute Kidney Insufficiency ( ) Other (Specify): Principal Diagnosis: "that condition established after study, to be chiefly responsible for occasioning the admission of the patient to the hospital for care." Co-Existing Principal Diagnosis: "when two or more diagnoses equally meet the criteria for principal diagnosis as determined by the circumstances of admission , diagnostic work up, and/or therapy provided, and the Alphabetic Index, Tabular List, or another coding guideline does not provide sequencing direction , any one of the diagnoses may be sequenced first." "When the physician has documented what appears to be a current diagnosis in the body of the record, but has not included the diagnosis in the final diagnostic statement, the physician should be asked whether the diagnosis should be added." (Source [facility] 2 QTR90. p3-4) YOVANI
== END 2018-07-07 14:01 | disposition home or self-care (01) | DRG 454 ==
LOC: ASU 10:27 → 3E 13:43